=== PATIENT | male | born 1970 | race Caucasian/White ===

== ENCOUNTER 2016-08-09 17:11 | Emergency (ER) | payer OTHER ==
[~2016-08-09] VITALS: Ht 177.8 cm; Wt 102.1 kg
[~2016-08-09 17:11] MED LIST: ACIPHEX 20MG20 MG PO; FLEXERIL10 MG PO; VICODIN5-300 PO
[2016-08-09] MEDS ORDERED: ACIPHEX20 M1 PO (20:05)
[2016-08-09] MEDS ORDERED: SUBOXONE 8 MG-1 EACH SL (20:05)
[2016-08-09 20:14] LABS: ABSOLUTE BASOPHIL COUNT 0 /CUMM (0.0-0.2); ABSOLUTE EOSINOPHIL COUNT 0.1 /CUMM (0.0-0.7); ABSOLUTE GRANULOCYTE CT 6.2 /CUMM (1.4-6.5); ABSOLUTE LYMPH COUNT 1.6 /CUMM (1.2-3.4); ABSOLUTE MONOCYTE COUNT 0.4 /CUMM (0.10-0.60); BASOPHIL % 0.1 % (0.0-2.0); EOSINOPHIL % 1.1 % (0-5); GRANULOCYTE % 74.4 % (42.2-75.2); HEMATOCRIT 42.4 % (42-52); MEAN CORPUSCULAR HGB 29.5 PG (27.0-31.0); MEAN CORPUSCULAR HGB CONC 33.4 G/DL (33.0-37.0); MEAN CORPUSCULAR VOLUME 88.1 FL (80.0-94.0); PLATELET COUNT 184 /CUMM (130-400); RBC DISTRIBUTION WIDTH 13.1 % (11.5-14.5); RED BLOOD CELL CT 4.81 /CUMM (4.70-6.10); WHITE BLOOD CELL COUNT 8.3 /CUMM (4.8-10.8)
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
--- NOTE | 2016-08-09 21:05 | RADIOLOGY REPORT ---
EXAMINATION: XR ANKLE, LEFT CLINICAL INFORMATION: Status post fall COMPARISON: None TECHNIQUE: AP, lateral, and mortise views of the left ankle. FINDINGS: The bones and soft tissues are normal. No fracture. Alignment is anatomic. Joint spaces are maintained. No joint effusion. There are prominent enthesophytes along the superior and inferior aspects of the calcaneus. IMPRESSION: Unremarkable left ankle examination without evidence for acute fracture.
--- NOTE | 2016-08-09 21:08 | RADIOLOGY REPORT ---
EXAMINATION: XR RIBS, LEFT CLINICAL INFORMATION: History of fall. Question fracture. COMPARISON: None TECHNIQUE: Frontal and lateral chest, dedicated left rib series. FINDINGS: Lungs are clear. No consolidation, pneumothorax, or pleural effusion. The cardiomediastinal silhouette and pulmonary vasculature are normal. Osseous structures are unremarkable. Ribs are intact. No fractures are identified. IMPRESSION: Unremarkable examination.
[2016-08-09 21:18] VITALS: BP 124/62
[2016-08-09] MEDS ORDERED: NAPROSYN500 M1 PO (21:19)
== END 2016-08-09 21:25 ==
LOC: ERH 17:11
PROVIDERS: Physician Assistant
DX: S20.212A Contusion of left front wall of thorax, initial encounter (principal); S93.402A Sprain of unspecified ligament of left ankle, initial encounter; W19.XXXA Unspecified fall, initial encounter; Y93.89 Activity, other specified; Y92.009 Unspecified place in unspecified non-institutional (private) residence as the place of occurrence of the external cause
CPT/HCPCS: 71100-LT; 73610-LT; 93005; 93010; 96372; J1885